=== PATIENT | male | born 1995 | race Caucasian/White ===

== ENCOUNTER 2017-10-01 21:47 | Inpatient (IN) | payer OTHER ==
[~2017-10-01] VITALS: Ht 180.3 cm; Wt 65.6 kg
[2017-10-01] MEDS ORDERED: IOHEXOL 350 MG/ML 10 ML VIAL (for RAD DIAG) IVCONTRAST ONE ×2 (21:48→22:23)
[2017-10-01 21:50] VITALS: O2SAT 100
[2017-10-01] MEDS ORDERED: ONDANSETRON HCL 4 MG/2 ML VIAL ONE (21:50)
[2017-10-01] MEDS ORDERED: MORPHINE SULFATE 8 MG/ML INJ ONE (21:50)
[2017-10-01 22:05] LABS: AUTOMATED NEUTROPHIL # 14.7 TH/MM3 (1.8-7.7); BASOPHIL # 0.1 TH/MM3 (0-0.2); BASOPHIL % 0.4 % (0.0-2.0); EOSINOPHIL # 0.2 TH/MM3 (0-0.4); EOSINOPHIL % 0.8 % (0.0-4.0); HEMATOCRIT 41.2 % (39.0-51.0); HEMOGLOBIN 14.4 GM/DL (13.0-17.0); LYMPH % 21.1 % (9.0-44.0); LYMPHOCYTE # 4.4 TH/MM3 (1.0-4.8); MEAN CELL VOLUME 86.3 FL (80.0-100.0); MEAN CORPUSCULAR HEMOGLOBIN 30.1 PG (27.0-34.0); MEAN CORPUSCULAR HGB CONC 34.9 % (32.0-36.0); MEAN PLATELET VOLUME 8.2 FL (7.0-11.0); MONOCYTE # 1.4 TH/MM3 (0-0.9); NEUT % 70.7 % (16.0-70.0); PLATELET COUNT 288 TH/MM3 (150-450); RED BLOOD COUNT 4.77 MIL/MM3 (4.50-5.90); RED CELL DISTRIBUTION WIDTH 13.4 % (11.6-17.2); WHITE BLOOD COUNT 20.7 TH/MM3 (4.0-11.0)
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
[2017-10-01] MEDS: SODIUM CHLOR 0.9% 1000 ML INJ 1,000 ML IV SCH (22:26)
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
[2017-10-01] MEDS ORDERED: MORPHINE SULFATE 4 MG/ML INJ IV PUSH PRN (22:30)
[2017-10-01] MEDS ORDERED: SENNOSIDES 8.6 MG TAB PO PRN (22:30)
[2017-10-01] MEDS ORDERED: BISACODYL 10 MG SUPP RECTAL PRN (22:30)
[2017-10-01] MEDS ORDERED: cefTRIAXone INJ 2,000 MG in SODIUM CHLORIDE 0.9% INJ 100 ML IV SCH (22:30)
[2017-10-01] MEDS ORDERED: MISCELLANEOUS NURSING INFORMATION XX SCH (22:30)
[2017-10-01] MEDS ORDERED: CHLORHEXIDINE GLUCONATE 2 % 1 PACK (2 CLOTHS) TOP PRN (22:30)
[2017-10-01] MEDS ORDERED: ONDANSETRON HCL 4 MG/2 ML VIAL IV PUSH PRN (22:30)
[2017-10-01] MEDS ORDERED: LACTULOSE SYRUP 20 GM/30 ML CUP PO PRN (22:30)
[2017-10-01] MEDS: ACETAMINOPHEN 1000 MG/100 ML 100 ML IV SCH (22:30)
[2017-10-01] MEDS ORDERED: MAGNESIUM HYDROXIDE SUSP 30 ML CUP PO PRN (22:30)
[2017-10-01] MEDS ORDERED: MORPHINE SULFATE 2 MG/ML INJ IV PUSH PRN (22:30)
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
[2017-10-01 22:39] LABS: INTERNATIONAL NORMALIZED RATIO 1.1 RATIO; PROTHROMBIN TIME - PATIENT 11.4 SEC (9.8-11.6)
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
[2017-10-01 23:00] VITALS: BP 127/60; PULSE 90; RESP 23; TEMP 98.6; O2SAT 100; O2SAT 96
[2017-10-01] MEDS ORDERED: LACTATED RINGER'S 1000 ML INJ 1,000 ML IV ONE (23:00)
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
[2017-10-01] MEDS ORDERED: MAGNESIUM SULFATE INJ 2 GM in SODIUM CHLORIDE 0.9% INJ 96 ML IV PRN (23:45)
[2017-10-01] MEDS ORDERED: MAGNESIUM SULFATE INJ 4 GM in SODIUM CHLORIDE 0.9% INJ 92 ML IV PRN (23:45)
[2017-10-01] MEDS ORDERED: POTASSIUM CHLOR 40 MEQ PREMIX 100 ML IV PRN ×2 (23:45)
[2017-10-01] MEDS ORDERED: MAGNESIUM OXIDE 400 MG TAB PO PRN (23:45)
[2017-10-01] MEDS ORDERED: POTASSIUM PHOSPHATE MONOBASIC 500 MG TAB PO PRN (23:45)
[2017-10-01] MEDS ORDERED: SODIUM PHOSPHATE INJ 30 MMOL in SODIUM CHLOR 0.9% 250 ML INJ 240 ML IV PRN (23:45)
[2017-10-01] MEDS ORDERED: POTASSIUM CHLOR 20 MEQ PREMIX 100 ML IV PRN ×2 (23:45)
[2017-10-01] MEDS ORDERED: POTASSIUM PHOSPHATE MONOBASIC 500 MG TAB PO/TUBE PRN (23:45)
[2017-10-01] MEDS ORDERED: POTASSIUM PHOSPHATE INJ 30 MMOL in SODIUM CHLOR 0.9% 250 ML INJ 250 ML IV PRN (23:45)
[2017-10-01] MEDS ORDERED: POTASSIUM CHLORIDE 25 MEQ EFFERVESCENT TAB PO PRN (23:45)
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
[2017-10-02] VITALS (19 sets, daily range): BP systolic 120–140; BP diastolic 56–74; PULSE 76–100; RESP 15–22; TEMP 98.6–98.8; O2SAT 99–100
[2017-10-02 03:41] LABS: HEMATOCRIT 38.2 % (39.0-51.0); HEMOGLOBIN 13.9 GM/DL (13.0-17.0)
[2017-10-02] MEDS: CHLORHEXIDINE GLUCONATE 2 % 1 PACK (2 CLOTHS) TOP SCH (04:00)
[2017-10-02] MEDS: ACETAMINOPHEN 1000 MG/100 ML 100 ML IV SCH ×3 (04:12→16:06)
[2017-10-02 04:15] LABS: BASOPHIL % 0.1 % (0.0-2.0); HEMATOCRIT 39.2 % (39.0-51.0); HEMOGLOBIN 13.8 GM/DL (13.0-17.0); LYMPH % 4.9 % (9.0-44.0); LYMPHOCYTE # 0.8 TH/MM3 (1.0-4.8); MEAN CELL VOLUME 86.3 FL (80.0-100.0); MEAN CORPUSCULAR HEMOGLOBIN 30.4 PG (27.0-34.0); MEAN CORPUSCULAR HGB CONC 35.2 % (32.0-36.0); MEAN PLATELET VOLUME 7.9 FL (7.0-11.0); MONO % 10.6 % (0.0-8.0); MONOCYTE # 1.6 TH/MM3 (0-0.9); NEUT % 84.4 % (16.0-70.0); PLATELET COUNT 200 TH/MM3 (150-450); RED BLOOD COUNT 4.55 MIL/MM3 (4.50-5.90); RED CELL DISTRIBUTION WIDTH 13.1 % (11.6-17.2); WHITE BLOOD COUNT 15.4 TH/MM3 (4.0-11.0)
[2017-10-02 04:36] LABS: BICARBONATE 26.5 MEQ/L (21.0-32.0); CALCIUM 8.1 MG/DL (8.5-10.1); CREATININE 1.11 MG/DL (0.60-1.30)
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
[2017-10-02] MEDS ORDERED: ceFAZolin INJ 1,000 MG VIAL ONE (06:35)
[2017-10-02] MEDS ORDERED: GENTAMICIN SULFATE 80 MG/2 ML VIAL ONE ×2 (06:35→08:31)
[2017-10-02] MEDS ORDERED: fentaNYL CITRATE 250 MCG/5 ML AMP ONE (07:10)
[2017-10-02] MEDS ORDERED: ceFAZolin 2 GM PREMIX 50 ML ONE (07:16)
[2017-10-02] MEDS: METHOCARBAMOL 500 MG TAB PO SCH ×2 (08:00→16:05)
[2017-10-02] MEDS: SODIUM CHLOR 0.9% 1000 ML INJ 1,000 ML IV SCH ×2 (08:26→19:47)
[2017-10-02] MEDS: GABAPENTIN 300 MG CAP PO SCH ×3 (09:00→19:17)
[2017-10-02] MEDS: DOCUSATE SODIUM 50 MG/SENNA 8.6 MG TAB PO SCH ×2 (09:00→20:38)
--- NOTE | 2017-10-02 10:13 | RADRPT ---
EXAM DATE/TIME: 10/02/2017 08:41 [facility] COMPARISON: TIBIA/FIBULA RIGHT ( 1 VW), October 01, 2017, 21:49. FEMUR RIGHT (AP & LAT/2VWS), October 02, 2017, 8:41 . INDICATIONS : Open reduction internal fixation of right tibia fracture MEDICAL HISTORY : None. SURGICAL HISTORY : None. ENCOUNTER: Initial ACUITY: 1 day PAIN SCORE: Non-responsive. LOCATION: Right distal tibia FINDINGS: Fluoroscopic imaging of the postoperative right tibia and fibula demonstrates intramedullary konstantin and screw through the distal tibia with improved anatomic alignment. There is improved alignment on both the tibial and fibular fractures. CONCLUSION: Status post ORIF of distal fibula and tibia fractures with intramedullary konstantin and screw through the d istal tibia. Good anatomic alignment.. Deirdre Morales MD on October 02, 2017 at 10:09 Board Certified Radiologist. This report was verified electronically.
--- NOTE | 2017-10-02 10:14 | RADRPT ---
EXAM DATE/TIME: 10/02/2017 08:41 [place] COMPARISON: FEMUR RIGHT (1 VW), October 01, 2017, 21:49. INDICATIONS : Open reduction internal fixation of right femur fracture MEDICAL HISTORY : None. SURGICAL HISTORY : None. ENCOUNTER: Initial ACUITY: 1 day PAIN SCORE: Non-responsive. LOCATION: Right femur FINDINGS: Fluoroscopic imaging of the postoperative right femur demonstrates interval placement of an intramedu llary konstantin through the area of fracture with improved anatomic alignment of the mid femur fracture. CONCLUSION: Status post ORIF of a comminuted displaced femur fracture with good anatomic alignment of the osseous structures. Deirdre Morales MD on October 02, 2017 at 10:11 Board Certified Radiologist. This report was verified electronically.
[2017-10-02] MEDS: LACTATED RINGER'S 1000 ML INJ 1,000 ML IV SCH ×2 (10:17→18:17)
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
[2017-10-02] MEDS ORDERED: DO NOT ADM ANY ANTICOAGULANT DRUGS PRN (10:25)
[2017-10-02] MEDS ORDERED: MORPHINE SULFATE 8 MG/ML INJ IV PUSH PRN (10:30)
[2017-10-02] MEDS ORDERED: MAGNESIUM HYDROXIDE SUSP 30 ML CUP PO PRN (10:30)
[2017-10-02] MEDS ORDERED: POVIDONE IODINE 10% SOLN 118 ML BOTTLE TOPICAL PRN (10:30)
[2017-10-02] MEDS ORDERED: ONDANSETRON HCL 4 MG/2 ML VIAL IVP PRN (10:30)
[2017-10-02] MEDS ORDERED: SENNOSIDES 8.6 MG TAB PO PRN (10:30)
[2017-10-02] MEDS ORDERED: BISACODYL 10 MG SUPP RECTAL PRN (10:30)
[2017-10-02] MEDS ORDERED: ACETAMINOPHEN 325 MG TAB PO PRN (10:30)
[2017-10-02] MEDS ORDERED: Post-op Orders (for Pharmacy) XX ONE (10:30)
[2017-10-02] MEDS ORDERED: LACTULOSE SYRUP 20 GM/30 ML CUP PO PRN (10:30)
[2017-10-02] MEDS ORDERED: SODIUM CHLORIDE 0.9% FLUSH 10 ML FLUSH IV FLUSH PRN (10:30)
[2017-10-02] MEDS ORDERED: *MEPERIDINE 25 MG INJ VIAL PERIprocedural Use ONLY ONE (10:43)
[2017-10-02] MEDS: PANTOPRAZOLE SODIUM 40 MG VIAL IV PUSH SCH (10:55)
[2017-10-02] MEDS ORDERED: LIDOCAINE HCL 1% PF 5 ML SYRINGE OTHER ONE (12:00)
[2017-10-02] MEDS ORDERED: PHENYLEPH/NS 1000 MCG/10 ML SYR IV ONE (12:00)
[2017-10-02] MEDS ORDERED: ePHEDrine/NS 25 MG/5 ML SYRINGE IV ONE (12:00)
[2017-10-02] MEDS ORDERED: LACTATED RINGER'S 1000 ML INJ 3,000 ML IV ONE (12:00)
[2017-10-02] MEDS ORDERED: SODIUM CHLOR 0.9% 250 ML INJ 250 ML IV ONE (12:00)
[2017-10-02] MEDS ORDERED: PHENYLEPHRINE HCL 10 MG/ML VIAL IV ONE (12:00)
[2017-10-02] MEDS ORDERED: ONDANSETRON HCL 4 MG/2 ML VIAL IV PUSH ONE (12:00)
[2017-10-02] MEDS ORDERED: DEXAMETHASONE SOD PHOS 4 MG/ML VIAL IV ONE (12:00)
[2017-10-02] MEDS ORDERED: PROPOFOL 200 MG/20 ML AMP IV ONE (12:00)
[2017-10-02] MEDS ORDERED: SUCCINYLCHOLINE CHLORIDE 200 MG/10 ML VIAL IV ONE (12:00)
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
--- NOTE | 2017-10-02 13:23 | PD.ORT.PN ---
Subjective Post Op Day #: 0 Subjective Remarks POD #0 1. Irrigation and debridement right open tibia fracture with intramedullary konstantin fixation 2. Retrograde intramedullary konstantin fixation right femur Pt in recovery area. Objective Vitals Vital Signs Date Time Temp Pulse Resp B/P (MAP) Pulse Ox O2 Delivery O2 Flow Rate FiO2 10/02/17 11:08 91 16 131/78 (95) 97 Room Air 10/02/17 10:54 88 16 129/77 (94) 97 Room Air 10/02/17 10:40 116 16 126/62 (83) 98 Room Air 10/02/17 10:29 97.8 120 16 133/60 (84) 100 Room Air 10/02/17 06:00 98.6 100 10/02/17 05:00 98.7 91 17 /62 99 10/02/17 04:00 98.8 93 17 133/62 (85) 99 10/02/17 04:00 93 10/02/17 03:00 98.8 92 18 135/63 (87) 99 10/02/17 02:00 98.7 98 19 130/59 (82) 100 10/02/17 02:00 98 10/02/17 01:00 98.8 100 21 131/64 (86) 100 10/02/17 00:18 100 Nasal Cannula 1.50 10/02/17 00:00 98.8 90 22 120/56 (77) 100 10/02/17 00:00 90 10/01/17 23:00 96 Nasal Cannula 3.00 10/01/17 23:00 90 10/01/17 23:00 98.6 90 23 127/60 (82) 100 10/01/17 21:50 100 2.00 I/O 10/01/17 10/01/17 10/01/17 10/02/17 10/02/17 10/02/17 07:00 15:00 23:00 07:00 15:00 23:00 Intake Total 3500 ml Output Total 250 ml 99776 ml Balance -250 ml -6500 ml Intake IV Total 3500 ml Output Urine Total 250 ml 900 ml Estimated Blood Loss 100 ml Other 9000 ml # Bowel Movements 0 Result Diagram: 10/02/17 0403 10/02/17 0403 Other Results Laboratory Tests Test 10/01/17 21:48 Prothromb Time International Ratio 1.1 RATIO Prothrombin Time 11.4 SEC (9.8-11.6) Imaging Last 24 hours Impressions Tibia/Fibula X-Ray 10/02/17 0000 Signed Impressions: Service Date/Time: Monday, October 02, 2017 08:41 - CONCLUSION: Status post ORIF of distal fibula and tibia fractures with intramedullary konstantin and screw through the distal tibia. Good anatomic alignment.. Deirdre Morales MD Femur X-Ray 10/02/17 0000 Signed Impressions: Service Date/Time: Monday, October 02, 2017 08:41 - CONCLUSION: Status post ORIF of a comminuted displaced femur fracture with good anatomic alignment of the osseous structures. Deirdre Morales MD Thoracic Spine CT 10/01/172151 Signed Impressions: Service Date/Time: Sunday, October 01, 2017 22:05 - CONCLUSION: Complex fracturing of T4 and T5 as above. Both vertebral posterior elements are involved and there is also a moderate compression fracture of T5. T4/T5 facets are perched on the right with a gibbus and road roto-kyphotic deformity but no associated subluxation. 11 mm right laminar fracture fragment of T4 is displaced into the spinal canal and causes moderate spinal stenosis. Findings were discussed with the trauma surgeon, Dr. Colon, by phone. Hieu Tavarez MD Pelvis X-Ray 10/01/172151 Signed Impressions: Service Date/Time: Sunday, October 01, 2017 21:49 - CONCLUSION: No evidence of pelvic fracture. Hieu Tavarez MD Maxillofacial CT 10/01/172151 Signed Impressions: Service Date/Time: Sunday, October 01, 2017 21:58 - CONCLUSION: Intact facial bones. iHeu Tavarez MD Lumbar Spine CT 10/01/172151 Signed Impressions: Service Date/Time: Sunday, October 01, 2017 22:05 - CONCLUSION: No fracture. Josue Mcmahon MD Head CT 10/01/172151 Signed Impressions: Service Date/Time: Sunday, October 01, 2017 21:58 - CONCLUSION: No bleed or other acute intracranial abnormality. Hieu Tavarez MD Chest X-Ray 10/01/172151 Signed Impressions: Service Date/Time: Sunday, October 01, 2017 21:49 - CONCLUSION: Trauma chest x-ray within normal limits. CT to follow. Hieu Tavarez MD Chest CT 10/01/172151 Signed Impressions: Service Date/Time: Sunday, October 01, 2017 22:05 - CONCLUSION: T4 and T5 thoracic spine fracture. Thoracic spine CT to follow and please refer to that report. The rest of the chest CT is within normal limits. Hieu Tavarez MD Cervical Spine CT 10/01/172151 Signed Impressions: Service Date/Time: Sunday, October 01, 2017 21:58 - CONCLUSION: Multifocal cervical spine fractures including the C1 ring and posterior elements of C6 and C7. Please see above. No subluxations. Mass of the left lobe of the thyroid gland and a nonemergent thyroid ultrasound is recommended. 1. Hieu Tavarez MD Abdomen/Pelvis CT 10/01/172151 Signed Impressions: Service Date/Time: Sunday, October 01, 2017 22:05 - CONCLUSION: No acute abnormality of the abdomen or pelvis. Hieu Tavarez MD Procedures 1. Irrigation and debridement right open tibia fracture with intramedullary konstantin fixation, 10/02/17, Dr Benjamin 2. Retrograde intramedullary konstantin fixation right femur, 10/02/17, Dr Benjamin Objective Remarks RLE: Dressing dry and intact. Brace in place. Tender to palpation with mild swelling around incision site. Range of motion not tested. Freely able to move distal digits. No calf pain. Negative Cristina's sign. Good cap refill. 2+ pedal pulses. Neurovascular intact. Assessment & Plan Ortho Post Op Day #: 0 Problem List: (1) Displaced comminuted fracture of shaft of right femur ICD Codes: S72.351A - Displaced comminuted fracture of shaft of right femur, initial encounter for closed fracture (2) Type I or II open fracture of right tibia and fibula ICD Codes: S82.201B - Unspecified fracture of shaft of right tibia, initial encounter for open fracture type I or II; S82.401B - Unspecified fracture of shaft of right fibula, initial encounter for open fracture type I or II Assessment and Plan POD #0 1. Irrigation and debridement right open tibia fracture with intramedullary konstantin fixation 2. Retrograde intramedullary konstantin fixation right femur Progress rehab, toe touch w/b for transfers only RLE CKS for comfort while in bed. DVT prophylaxis per trauma team Start daily dressing changes on POD #2 Discharge planning from an orthopedic standpoint Jayde Ziegler Oct 02, 2017 1:23 pm
[2017-10-02] MEDS: oxyCODONE/ACETAMINOPHEN 5 MG/325 MG TAB PO PRN ×2 (14:39→20:38)
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
[2017-10-02] MEDS: ceFAZolin 2 GM PREMIX 50 ML IV SCH (19:16)
[2017-10-02] MEDS: SODIUM CHLORIDE 0.9% FLUSH 10 ML FLUSH IV FLUSH SCH (21:00)
[2017-10-02] MEDS ORDERED: DOCUSATE SODIUM 50 MG/SENNA 8.6 MG TAB PO SCH (21:00)
[2017-10-03] VITALS (16 sets, daily range): BP systolic 121–138; BP diastolic 57–168; PULSE 88–105; RESP 16–21; TEMP 98.4–100.9; O2SAT 97–99
[2017-10-03] MEDS: ceFAZolin 2 GM PREMIX 50 ML IV SCH (00:54)
[2017-10-03] MEDS: oxyCODONE/ACETAMINOPHEN 5 MG/325 MG TAB PO PRN ×6 (00:55→22:37)
[2017-10-03] MEDS: METHOCARBAMOL 500 MG TAB PO SCH ×4 (00:55→22:33)
[2017-10-03] MEDS: LACTATED RINGER'S 1000 ML INJ 1,000 ML IV SCH ×4 (02:17→18:45)
[2017-10-03] MEDS: CHLORHEXIDINE GLUCONATE 2 % 1 PACK (2 CLOTHS) TOP SCH (04:00)
[2017-10-03 05:23] LABS: HEMATOCRIT 30.6 % (39.0-51.0)
[2017-10-03] MEDS: PANTOPRAZOLE SODIUM 40 MG VIAL IV PUSH SCH (05:46)
[2017-10-03] MEDS: DOCUSATE SODIUM 50 MG/SENNA 8.6 MG TAB PO SCH ×2 (08:06→22:21)
[2017-10-03] MEDS: GABAPENTIN 300 MG CAP PO SCH ×3 (08:06→18:45)
[2017-10-03] MEDS: SODIUM CHLORIDE 0.9% FLUSH 10 ML FLUSH IV FLUSH SCH ×2 (08:07→22:21)
--- NOTE | 2017-10-03 10:59 | PD.ORT.PN ---
Subjective Subjective Remarks Patient in ISC. Patient appears very comfortable. Wearing cervical collar. No new complaints Objective Vitals Vital Signs Date Time Temp Pulse Resp B/P (MAP) Pulse Ox O2 Delivery O2 Flow Rate FiO2 10/03/17 08:00 98.4 95 21 121/57 (78) 97 10/03/17 08:00 95 10/03/17 07:30 90 10/03/17 07:30 100 Room Air 10/03/17 06:00 98 10/03/17 04:00 89 10/03/17 03:00 98.9 90 16 125/60 (81) 98 10/03/17 02:00 88 10/03/17 00:00 94 10/02/17 23:37 99 Nasal Cannula 1.50 10/02/17 23:00 98.8 88 16 124/66 (85) 100 10/02/17 22:00 99 10/02/17 20:00 82 10/02/17 19:00 99 Room Air 1.50 10/02/17 19:00 98.6 96 17 139/74 (95) 10/02/17 18:00 90 10/02/17 16:00 95 10/02/17 16:00 98.8 89 15 140/67 (91) 99 10/02/17 15:37 84 10/02/17 14:00 83 10/02/17 12:00 76 10/02/17 12:00 98 10/02/17 11:45 98.7 76 20 139/73 (95) 100 10/02/17 11:45 100 Room Air 10/02/17 11:08 91 16 131/78 (95) 97 Room Air I/O 10/02/17 10/02/17 10/02/17 10/03/17 10/03/17 10/03/17 07:00 15:00 23:00 07:00 15:00 23:00 Intake Total 3500 ml 557 ml Output Total 250 ml 29370 ml 975 ml 1850 ml Balance -250 ml -6500 ml -418 ml -1850 ml Intake Oral 120 ml IV Total 3500 ml 437 ml Output Urine Total 250 ml 900 ml 975 ml 1850 ml Estimated Blood Loss 100 ml Other 9000 ml # Bowel Movements 0 0 Result Diagram: 10/03/17 0455 10/02/17 0403 Imaging Last 24 hours Impressions Tibia/Fibula X-Ray 10/02/17 0000 Signed Impressions: Service Date/Time: Monday, October 02, 2017 08:41 - CONCLUSION: Status post ORIF of distal fibula and tibia fractures with intramedullary konstantin and screw through the distal tibia. Good anatomic alignment.. Deirdre Morales MD Femur X-Ray 10/02/17 0000 Signed Impressions: Service Date/Time: Monday, October 02, 2017 08:41 - CONCLUSION: Status post ORIF of a comminuted displaced femur fracture with good anatomic alignment of the osseous structures. Deirdre Morales MD Thoracic Spine CT 10/01/172151 Signed Impressions: Service Date/Time: Sunday, October 01, 2017 22:05 - CONCLUSION: Complex fracturing of T4 and T5 as above. Both vertebral posterior elements are involved and there is also a moderate compression fracture of T5. T4/T5 facets are perched on the right with a gibbus and road roto-kyphotic deformity but no associated subluxation. 11 mm right laminar fracture fragment of T4 is displaced into the spinal canal and causes moderate spinal stenosis. Findings were discussed with the trauma surgeon, Dr. Colon, by phone. Hieu Tavarez MD Pelvis X-Ray 10/01/172151 Signed Impressions: Service Date/Time: Sunday, October 01, 2017 21:49 - CONCLUSION: No evidence of pelvic fracture. Hieu Tavarze MD Maxillofacial CT 10/01/172151 Signed Impressions: Service Date/Time: Sunday, October 01, 2017 21:58 - CONCLUSION: Intact facial bones. Hieu Tavarez MD Lumbar Spine CT 10/01/172151 Signed Impressions: Service Date/Time: Sunday, October 01, 2017 22:05 - CONCLUSION: No fracture. Josue Mcmahon MD Head CT 10/01/172151 Signed Impressions: Service Date/Time: Sunday, October 01, 2017 21:58 - CONCLUSION: No bleed or other acute intracranial abnormality. Hieu Tavarez MD Chest X-Ray 10/01/172151 Signed Impressions: Service Date/Time: Sunday, October 01, 2017 21:49 - CONCLUSION: Trauma chest x-ray within normal limits. CT to follow. Hieu Tavarez MD Chest CT 10/01/172151 Signed Impressions: Service Date/Time: Sunday, October 01, 2017 22:05 - CONCLUSION: T4 and T5 thoracic spine fracture. Thoracic spine CT to follow and please refer to that report. The rest of the chest CT is within normal limits. Hieu Tavarez MD Cervical Spine CT 10/01/172151 Signed Impressions: Service Date/Time: Sunday, October 01, 2017 21:58 - CONCLUSION: Multifocal cervical spine fractures including the C1 ring and posterior elements of C6 and C7. Please see above. No subluxations. Mass of the left lobe of the thyroid gland and a nonemergent thyroid ultrasound is recommended. 1. Hieu Tavarez MD Abdomen/Pelvis CT 10/01/172151 Signed Impressions: Service Date/Time: Sunday, October 01, 2017 22:05 - CONCLUSION: No acute abnormality of the abdomen or pelvis. Hieu Tavarez MD Procedures 1. Irrigation and debridement right open tibia fracture with intramedullary konstantin fixation, 10/02/17, Dr Benjamin 2. Retrograde intramedullary konstantin fixation right femur, 10/02/17, Dr Benjamin Objective Remarks RLE: Dressing dry and intact. Brace in place. Tender to palpation with mild swelling around incision site. Range of motion not tested. Freely able to move distal digits. No calf pain. Negative Cristina's sign. Good cap refill. 2+ pedal pulses. Neurovascular intact. Moderate swelling of the right foot but no discomfort to deep palpation. No tenderness of either shoulder or elbow or wrist. No tenderness of left hip knee or ankle Assessment & Plan Problem List: (1) Displaced comminuted fracture of shaft of right femur ICD Codes: S72.351A - Displaced comminuted fracture of shaft of right femur, initial encounter for closed fracture (2) Type I or II open fracture of right tibia and fibula ICD Codes: S82.201B - Unspecified fracture of shaft of right tibia, initial encounter for open fracture type I or II; S82.401B - Unspecified fracture of shaft of right fibula, initial encounter for open fracture type I or II Assessment and Plan POD #1 1. Irrigation and debridement right open tibia fracture with intramedullary konstantin fixation 2. Retrograde intramedullary konstantin fixation right femur Progress rehab, toe touch w/b for transfers only RLE CKS for comfort while in bed. DVT prophylaxis per trauma team Start daily dressing changes on POD #2 Discharge planning from an orthopedic standpoint Spinal skeletal conditions treated by neurosurgery Stable orthopedically Eliud Meraz MD Oct 03, 2017 10:59
[2017-10-03] MEDS: BACITRACIN TOP OINT 15 GM TUBE TOPICAL SCH ×2 (12:25→22:21)
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
[2017-10-03] MEDS: SODIUM CHLOR 0.9% 1000 ML INJ 1,000 ML IV SCH (16:05)
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
[2017-10-03] MEDS ORDERED: ceFAZolin 2 GM PREMIX 50 ML IV ONE (16:15)
[2017-10-03] MEDS ORDERED: VANCOMYCIN INJ 1,000 MG in SODIUM CHLOR 0.9% 250 ML INJ 250 ML IV ONE (16:15)
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
[2017-10-03] MEDS: CHLORHEXIDINE GLUCONATE 4% SOLN 120 ML BTL TOP SCH (22:21)
[2017-10-04] VITALS (8 sets, daily range): BP systolic 126–138; BP diastolic 59–73; PULSE 82–104; RESP 12–24; TEMP 98.3–101.5; O2SAT 91–100
[2017-10-04] MEDS: SODIUM CHLOR 0.9% 1000 ML INJ 1,000 ML IV SCH ×3 (02:05→21:24)
[2017-10-04] MEDS: LACTATED RINGER'S 1000 ML INJ 1,000 ML IV SCH ×4 (02:34→21:24)
[2017-10-04] MEDS: CHLORHEXIDINE GLUCONATE 2 % 1 PACK (2 CLOTHS) TOP SCH ×2 (02:34→21:24)
[2017-10-04] MEDS: oxyCODONE/ACETAMINOPHEN 5 MG/325 MG TAB PO PRN (02:40)
[2017-10-04 04:36] LABS: AUTOMATED NEUTROPHIL # 5.4 TH/MM3 (1.8-7.7); BASOPHIL % 0.4 % (0.0-2.0); EOSINOPHIL # 0.2 TH/MM3 (0-0.4); EOSINOPHIL % 2.2 % (0.0-4.0); HEMATOCRIT 28.1 % (39.0-51.0); LYMPH % 14.4 % (9.0-44.0); LYMPHOCYTE # 1.1 TH/MM3 (1.0-4.8); MEAN CELL VOLUME 86.3 FL (80.0-100.0); MEAN CORPUSCULAR HEMOGLOBIN 30.7 PG (27.0-34.0); MEAN CORPUSCULAR HGB CONC 35.6 % (32.0-36.0); MEAN PLATELET VOLUME 7.8 FL (7.0-11.0); MONO % 12.7 % (0.0-8.0); NEUT % 70.3 % (16.0-70.0); PLATELET COUNT 155 TH/MM3 (150-450); RED BLOOD COUNT 3.26 MIL/MM3 (4.50-5.90); RED CELL DISTRIBUTION WIDTH 13.2 % (11.6-17.2); WHITE BLOOD COUNT 7.7 TH/MM3 (4.0-11.0)
[2017-10-04 04:59] LABS: BICARBONATE 28.3 MEQ/L (21.0-32.0); CALCIUM 7.9 MG/DL (8.5-10.1); CREATININE 0.92 MG/DL (0.60-1.30)
[2017-10-04] MEDS ORDERED: SUFentanil INJ 250 MCG/5 ML AMP ONE (06:51)
[2017-10-04] MEDS ORDERED: ARTIFICIAL TEARS OPTH OINT 3.5 APPLIC/3.5 GM TUBO ONE (06:55)
[2017-10-04] MEDS ORDERED: PROPOFOL 500 MG/50 ML INJ 150 ML ONE (06:55)
[2017-10-04] MEDS ORDERED: ACETAMINOPHEN 1000 MG/100 ML 100 ML IV ONE (06:55)
--- NOTE | 2017-10-04 07:15 | PD.ORT.PN ---
Subjective Post Op Day #: 2 Subjective Remarks The patient is awake and alert and answers questions appropriate. His right lower extremity pain is well-controlled. He is scheduled to undergo surgical management of his thoracic spine today. Objective Vitals Vital Signs Date Time Temp Pulse Resp B/P (MAP) Pulse Ox O2 Delivery O2 Flow Rate FiO2 10/04/17 06:00 82 10/04/17 04:00 96 10/04/17 04:00 98.3 96 12 133/59 (83) 91 10/04/17 02:00 94 10/04/17 00:00 90 10/04/17 00:00 101.5 96 24 132/65 (87) 95 10/03/17 23:00 96 10/03/17 22:00 96 10/03/17 20:00 98 10/03/17 20:00 99.4 98 20 132/60 (84) 99 10/03/17 19:00 100 Room Air 10/03/17 18:00 105 10/03/17 16:00 101 10/03/17 16:00 98.6 101 19 138/168 (158) 98 10/03/17 15:00 103 10/03/17 14:38 96 10/03/17 12:00 92 10/03/17 12:00 100.9 92 19 132/68 (89) 99 10/03/17 10:00 90 10/03/17 08:00 98.4 95 21 121/57 (78) 97 10/03/17 08:00 95 10/03/17 07:30 90 10/03/17 07:30 100 Room Air I/O 10/03/17 10/03/17 10/03/17 10/04/17 10/04/17 10/04/17 07:00 15:00 23:00 07:00 15:00 23:00 Intake Total 2250 ml Output Total 1850 ml 1700 ml 1675 ml Balance -1850 ml 550 ml -1675 ml Intake Oral 850 ml IV Total 1400 ml Output Urine Total 1850 ml 1700 ml 1675 ml # Bowel Movements 0 0 Result Diagram: 10/04/17 0410 10/04/17 0410 Imaging Last 24 hours Impressions Tibia/Fibula X-Ray 10/02/17 0000 Signed Impressions: Service Date/Time: Monday, October 02, 2017 08:41 - CONCLUSION: Status post ORIF of distal fibula and tibia fractures with intramedullary konstantin and screw through the distal tibia. Good anatomic alignment.. Deirdre Morales MD Femur X-Ray 10/02/17 0000 Signed Impressions: Service Date/Time: Monday, October 02, 2017 08:41 - CONCLUSION: Status post ORIF of a comminuted displaced femur fracture with good anatomic alignment of the osseous structures. Deirdre Morales MD Thoracic Spine CT 10/01/172151 Signed Impressions: Service Date/Time: Sunday, October 01, 2017 22:05 - CONCLUSION: Complex fracturing of T4 and T5 as above. Both vertebral posterior elements are involved and there is also a moderate compression fracture of T5. T4/T5 facets are perched on the right with a gibbus and road roto-kyphotic deformity but no associated subluxation. 11 mm right laminar fracture fragment of T4 is displaced into the spinal canal and causes moderate spinal stenosis. Findings were discussed with the trauma surgeon, Dr. Colon, by phone. Hieu Tavarez MD Pelvis X-Ray 10/01/172151 Signed Impressions: Service Date/Time: Sunday, October 01, 2017 21:49 - CONCLUSION: No evidence of pelvic fracture. Hieu Tavarez MD Maxillofacial CT 10/01/172151 Signed Impressions: Service Date/Time: Sunday, October 01, 2017 21:58 - CONCLUSION: Intact facial bones. Hieu Tavarez MD Lumbar Spine CT 10/01/172151 Signed Impressions: Service Date/Time: Sunday, October 01, 2017 22:05 - CONCLUSION: No fracture. Josue Mcmahon MD Head CT 10/01/172151 Signed Impressions: Service Date/Time: Sunday, October 01, 2017 21:58 - CONCLUSION: No bleed or other acute intracranial abnormality. Hieu Tavarez MD Chest X-Ray 10/01/172151 Signed Impressions: Service Date/Time: Sunday, October 01, 2017 21:49 - CONCLUSION: Trauma chest x-ray within normal limits. CT to follow. Hieu Tavarez MD Chest CT 10/01/172151 Signed Impressions: Service Date/Time: Sunday, October 01, 2017 22:05 - CONCLUSION: T4 and T5 thoracic spine fracture. Thoracic spine CT to follow and please refer to that report. The rest of the chest CT is within normal limits. Hieu Tavarez MD Cervical Spine CT 10/01/172151 Signed Impressions: Service Date/Time: Sunday, October 01, 2017 21:58 - CONCLUSION: Multifocal cervical spine fractures including the C1 ring and posterior elements of C6 and C7. Please see above. No subluxations. Mass of the left lobe of the thyroid gland and a nonemergent thyroid ultrasound is recommended. 1. Hieu Tavarez MD Abdomen/Pelvis CT 10/01/172151 Signed Impressions: Service Date/Time: Sunday, October 01, 2017 22:05 - CONCLUSION: No acute abnormality of the abdomen or pelvis. Hieu Tavarez MD Procedures 1. Irrigation and debridement right open tibia fracture with intramedullary konstantin fixation, 10/02/17, Dr Benjamin 2. Retrograde intramedullary konstantin fixation right femur, 10/02/17, Dr Benjamin Objective Remarks RLE: Dressing dry and intact. Brace in place. Tender to palpation with mild swelling around incision site. Range of motion not tested. Freely able to move distal digits. Mild weakness of ankle dorsiflexion. No calf pain. Negative Cristina's sign. Good cap refill. 2+ pedal pulses. Moderate swelling of the right foot but no discomfort to deep palpation. No tenderness of either shoulder or elbow or wrist. No tenderness of left hip knee or ankle Assessment & Plan Ortho Post Op Day #: 2 Problem List: (1) Displaced comminuted fracture of shaft of right femur ICD Codes: S72.351A - Displaced comminuted fracture of shaft of right femur, initial encounter for closed fracture Status: Acute Qualifiers: (2) Type I or II open fracture of right tibia and fibula ICD Codes: S82.201B - Unspecified fracture of shaft of right tibia, initial encounter for open fracture type I or II; S82.401B - Unspecified fracture of shaft of right fibula, initial encounter for open fracture type I or II Status: Acute Qualifiers: Qualified Codes: S82.201B - Unspecified fracture of shaft of right tibia, initial encounter for open fracture type I or II; S82.401B - Unspecified fracture of shaft of right fibula, initial encounter for open fracture type I or II Assessment and Plan POD #2 1. Irrigation and debridement right open tibia fracture with intramedullary konstantin fixation 2. Retrograde intramedullary konstantin fixation right femur Progress rehab, toe touch w/b for transfers only RLE CKS for comfort while in bed. DVT prophylaxis per trauma team Start daily dressing changes on POD #2 Discharge planning from an orthopedic standpoint Spinal skeletal conditions treated by neurosurgery-surgical management of thoracic spine today Stable orthopedically Kerwin Benjamin MD Oct 04, 2017 07:15
[2017-10-04] MEDS: PANTOPRAZOLE SODIUM 40 MG VIAL IV PUSH SCH (07:17)
[2017-10-04] MEDS ORDERED: GELFOAM SIZE 100 ONE (07:31)
[2017-10-04] MEDS ORDERED: VANCOMYCIN HCL 1000 MG VIAL ONE (07:32)
[2017-10-04] MEDS ORDERED: THROMBIN (TOPICAL) 5,000 UNIT VIAL ONE ×2 (07:32→13:13)
[2017-10-04] MEDS ORDERED: ceFAZolin 2 GM PREMIX 50 ML ONE ×2 (07:32→15:06)
[2017-10-04] MEDS ORDERED: methylPREDNISolone ACETATE 40 MG/ML VIAL ONE (07:33)
[2017-10-04] MEDS ORDERED: GENTAMICIN SULFATE 80 MG/2 ML VIAL ONE (07:33)
[2017-10-04] MEDS: METHOCARBAMOL 500 MG TAB PO SCH ×2 (08:00→23:14)
[2017-10-04] MEDS: DOCUSATE SODIUM 50 MG/SENNA 8.6 MG TAB PO SCH ×2 (09:00→21:26)
[2017-10-04] MEDS: BACITRACIN TOP OINT 15 GM TUBE TOPICAL SCH ×2 (09:00→21:26)
[2017-10-04] MEDS: SODIUM CHLORIDE 0.9% FLUSH 10 ML FLUSH IV FLUSH SCH ×2 (09:00→21:26)
[2017-10-04] MEDS: GABAPENTIN 300 MG CAP PO SCH ×2 (09:00→21:25)
[2017-10-04] MEDS ORDERED: KETAMINE HCL 10 MG/5 ML SYRINGE IV PUSH ONE (09:02)
[2017-10-04] MEDS ORDERED: HEPARIN SODIUM - SQ 10,000 UNITS/ML VIAL ONE (10:13)
[2017-10-04] MEDS ORDERED: HEPARIN SODIUM - IV 10,000 UNITS/10 ML VIAL ONE (10:13)
[2017-10-04] MEDS ORDERED: PHENYLEPH/NS 1000 MCG/10 ML SYR IV ONE (12:00)
[2017-10-04] MEDS ORDERED: PROPOFOL 200 MG/20 ML AMP IV ONE (12:00)
[2017-10-04] MEDS ORDERED: LIDOCAINE HCL 1% PF 5 ML SYRINGE OTHER ONE (12:00)
[2017-10-04] MEDS ORDERED: SODIUM CHLORID 0.9% 500 ML INJ 500 ML IV ONE (12:00)
[2017-10-04] MEDS ORDERED: NORMOSOL R INJ 1,000 ML IV ONE (12:00)
[2017-10-04] MEDS ORDERED: SODIUM CHLOR 0.9% 250 ML INJ 500 ML IV ONE (12:00)
[2017-10-04] MEDS ORDERED: ONDANSETRON HCL 4 MG/2 ML VIAL IV ONE (12:00)
[2017-10-04] MEDS ORDERED: PHENYLEPHRINE HCL 10 MG/ML VIAL IV ONE (12:00)
[2017-10-04] MEDS ORDERED: ePHEDrine/NS 25 MG/5 ML SYRINGE IV ONE (12:00)
[2017-10-04] MEDS ORDERED: DEXAMETHASONE SOD PHOS 4 MG/ML VIAL IV ONE (12:00)
[2017-10-04] MEDS ORDERED: GLYCOPYRROLATE 1 MG/5 ML SYRINGE IV PUSH ONE (12:00)
[2017-10-04] MEDS ORDERED: LACTATED RINGER'S 1000 ML INJ 2,000 ML IV ONE (12:00)
[2017-10-04] MEDS ORDERED: LIDOCAINE 1%/EPINEPHrine 1:100,000 SOLN 30 ML VIAL ONE (12:17)
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
[2017-10-04] MEDS ORDERED: GELATIN POWDER 1 GM PACKET ONE (13:14)
[2017-10-04 15:04] LABS: HEMOGLOBIN 8.5 GM/DL (13.0-17.0)
[2017-10-04 16:14] LABS: HEMATOCRIT 27.7 % (39.0-51.0); HEMOGLOBIN 9.7 GM/DL (13.0-17.0)
[2017-10-04] MEDS ORDERED: MORPHINE SULFATE 4 MG/ML INJ IV PUSH PRN (16:15)
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
--- NOTE | 2017-10-04 16:43 | RADRPT ---
EXAM DATE/TIME: 10/04/2017 11:19 [facility] COMPARISON: MRI THORACIC SPINE W/O CONTRAST, October 02, 2017, 16:48. INDICATIONS : Post hardware placement thoracic spine MEDICAL HISTORY : Right tibia fracture SURGICAL HISTORY : Hardware placement right tibia ENCOUNTER: Initial ACUITY: 3 days PAIN SCORE: Non-responsive. LOCATION: Thoracic spine FINDINGS: Transpedicular fixation is seen bridging the fractures of T4 and T5. Alignment is anatomic in the la teral projection. . CONCLUSION: Status post transpedicular fixation as above. Willie Parmar MD FACR on October 04, 2017 at 16:39 Board Certified Radiologist. This report was verified electronically.
[2017-10-04] MEDS ORDERED: DO NOT ADM ANY ANTICOAGULANT DRUGS PRN (16:51)
[2017-10-04] MEDS ORDERED: MIDAZOLAM HCL 2 MG/2 ML VIAL ONE (17:06)
[2017-10-04] MEDS: NS + KCL 20 MEQ INJ 1,000 ML IV SCH (17:25)
[2017-10-04] MEDS: HYDROmorphone HCL PCA 6 MG/30 ML IV SCH ×2 (17:25→23:15)
[2017-10-04] MEDS ORDERED: MORPHINE SULFATE 2 MG/ML INJ IV PUSH PRN (17:30)
[2017-10-04 17:58] LABS: HEMATOCRIT 31.5 % (39.0-51.0); MEAN CELL VOLUME 86.1 FL (80.0-100.0); MEAN CORPUSCULAR HEMOGLOBIN 30.1 PG (27.0-34.0); MEAN CORPUSCULAR HGB CONC 34.9 % (32.0-36.0); MEAN PLATELET VOLUME 7.7 FL (7.0-11.0); PLATELET COUNT 135 TH/MM3 (150-450); RED BLOOD COUNT 3.66 MIL/MM3 (4.50-5.90); RED CELL DISTRIBUTION WIDTH 13.5 % (11.6-17.2)
[2017-10-04 18:16] LABS: BICARBONATE 27.4 MEQ/L (21.0-32.0); CALCIUM 7.5 MG/DL (8.5-10.1); CREATININE 0.9 MG/DL (0.60-1.30)
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
[2017-10-04] MEDS: CHLORHEXIDINE GLUCONATE 4% SOLN 120 ML BTL TOP SCH (21:00)
[2017-10-04] MEDS: ceFAZolin 2 GM PREMIX 50 ML IV SCH (21:26)
[2017-10-05] VITALS (12 sets, daily range): BP systolic 111–130; BP diastolic 56–66; PULSE 80–105; RESP 10–19; TEMP 98.2–100.1; O2SAT 93–100
[2017-10-05] MEDS: NS + KCL 20 MEQ INJ 1,000 ML IV SCH ×3 (02:33→23:23)
[2017-10-05 05:33] LABS: AUTOMATED NEUTROPHIL # 5.7 TH/MM3 (1.8-7.7); BASOPHIL % 0.1 % (0.0-2.0); EOSINOPHIL % 0.5 % (0.0-4.0); HEMATOCRIT 26.7 % (39.0-51.0); HEMOGLOBIN 9.5 GM/DL (13.0-17.0); LYMPH % 13.5 % (9.0-44.0); LYMPHOCYTE # 1.1 TH/MM3 (1.0-4.8); MEAN CELL VOLUME 85.5 FL (80.0-100.0); MEAN CORPUSCULAR HEMOGLOBIN 30.5 PG (27.0-34.0); MEAN CORPUSCULAR HGB CONC 35.7 % (32.0-36.0); MEAN PLATELET VOLUME 7.5 FL (7.0-11.0); MONO % 13.5 % (0.0-8.0); MONOCYTE # 1.1 TH/MM3 (0-0.9); NEUT % 72.4 % (16.0-70.0); PLATELET COUNT 143 TH/MM3 (150-450); RED BLOOD COUNT 3.13 MIL/MM3 (4.50-5.90); RED CELL DISTRIBUTION WIDTH 13.9 % (11.6-17.2); WHITE BLOOD COUNT 7.9 TH/MM3 (4.0-11.0)
[2017-10-05] MEDS: ceFAZolin 2 GM PREMIX 50 ML IV SCH ×2 (05:40→14:52)
[2017-10-05] MEDS: PCA - TOTAL MG DILAUDID DELIVERED PER SHIFT SCH ×3 (05:40→22:55)
[2017-10-05 05:44] LABS: BICARBONATE 27.4 MEQ/L (21.0-32.0); CALCIUM 7.5 MG/DL (8.5-10.1); CREATININE 0.77 MG/DL (0.60-1.30)
[2017-10-05] MEDS: METHOCARBAMOL 500 MG TAB PO SCH ×3 (07:56→23:23)
[2017-10-05] MEDS: SODIUM CHLOR 0.9% 1000 ML INJ 1,000 ML IV SCH (07:58)
[2017-10-05] MEDS: PANTOPRAZOLE SODIUM 40 MG VIAL IVP SCH (08:06)
[2017-10-05] MEDS: DOCUSATE SODIUM 50 MG/SENNA 8.6 MG TAB PO SCH ×2 (08:06→20:30)
[2017-10-05] MEDS: GABAPENTIN 300 MG CAP PO SCH ×3 (08:06→18:28)
[2017-10-05] MEDS: SODIUM CHLORIDE 0.9% FLUSH 10 ML FLUSH IV FLUSH SCH ×2 (08:07→20:30)
[2017-10-05] MEDS: BACITRACIN TOP OINT 15 GM TUBE TOPICAL SCH ×2 (08:07→20:30)
--- NOTE | 2017-10-05 08:07 | PD.ORT.PN ---
Subjective Subjective Remarks POD #3 1. Irrigation and debridement right open tibia fracture with intramedullary konstantin fixation 2. Retrograde intramedullary konstantin fixation right femur Pt is awake and alert. Admits his pain is well controlled. He seems to be recovering well after a large back operation yesterday. Objective Vitals Vital Signs Date Time Temp Pulse Resp B/P (MAP) Pulse Ox O2 Delivery O2 Flow Rate FiO2 10/05/17 06:00 87 10/05/17 05:40 15 10/05/17 04:00 80 10/05/17 04:00 99.0 80 12 111/56 (74) 96 10/05/17 02:00 93 10/05/17 00:00 92 10/05/17 00:00 98.2 92 15 126/66 (86) 93 10/04/17 23:15 14 10/04/17 22:00 90 10/04/17 20:00 104 10/04/17 20:00 98.5 104 16 138/73 (94) 100 10/04/17 19:00 100 Nasal Cannula 2.00 10/04/17 18:00 98.4 90 12 126/71 (89) 100 10/04/17 18:00 96 10/04/17 17:45 97.5 84 15 126/72 (90) 100 Nasal Cannula 2 10/04/17 17:30 75 17 131/65 (87) 100 Nasal Cannula 2 10/04/17 17:25 19 10/04/17 17:15 86 19 133/68 (89) 100 Nasal Cannula 2 10/04/17 17:00 100 18 133/63 (86) 100 Nasal Cannula 2 10/04/17 16:51 97.3 113 20 132/61 (84) 100 Nasal Cannula 2 10/04/17 08:45 79 20 136/72 (93) 98 I/O 10/04/17 10/04/17 10/04/17 10/05/17 10/05/17 10/05/17 07:00 15:00 23:00 07:00 15:00 23:00 Intake Total 4775 ml 240 ml Output Total 1675 ml 1530 ml 1685 ml Balance -1675 ml 3245 ml -1445 ml Intake Oral 25 ml 240 ml IV Total 3950 ml Packed Cells 800 ml Output Urine Total 1675 ml 1100 ml 1675 ml Drainage Total 30 ml 10 ml Estimated Blood Loss 400 ml # Bowel Movements 0 0 Result Diagram: 10/05/17 0505 10/05/17 0505 Imaging Last 24 hours Impressions Tibia/Fibula X-Ray 10/02/17 0000 Signed Impressions: Service Date/Time: Monday, October 02, 2017 08:41 - CONCLUSION: Status post ORIF of distal fibula and tibia fractures with intramedullary konstantin and screw through the distal tibia. Good anatomic alignment.. Deirdre Morales MD Femur X-Ray 10/02/17 0000 Signed Impressions: Service Date/Time: Monday, October 02, 2017 08:41 - CONCLUSION: Status post ORIF of a comminuted displaced femur fracture with good anatomic alignment of the osseous structures. Deirdre Morales MD Thoracic Spine CT 10/01/172151 Signed Impressions: Service Date/Time: Sunday, October 01, 2017 22:05 - CONCLUSION: Complex fracturing of T4 and T5 as above. Both vertebral posterior elements are involved and there is also a moderate compression fracture of T5. T4/T5 facets are perched on the right with a gibbus and road roto-kyphotic deformity but no associated subluxation. 11 mm right laminar fracture fragment of T4 is displaced into the spinal canal and causes moderate spinal stenosis. Findings were discussed with the trauma surgeon, Dr. Colon, by phone. Hieu Tavarez MD Pelvis X-Ray 10/01/172151 Signed Impressions: Service Date/Time: Sunday, October 01, 2017 21:49 - CONCLUSION: No evidence of pelvic fracture. Hieu Tavarez MD Maxillofacial CT 10/01/172151 Signed Impressions: Service Date/Time: Sunday, October 01, 2017 21:58 - CONCLUSION: Intact facial bones. Hieu Tavarez MD Lumbar Spine CT 10/01/172151 Signed Impressions: Service Date/Time: Sunday, October 01, 2017 22:05 - CONCLUSION: No fracture. Josue Mcmahon MD Head CT 10/01/172151 Signed Impressions: Service Date/Time: Sunday, October 01, 2017 21:58 - CONCLUSION: No bleed or other acute intracranial abnormality. Hieu Tavarez MD Chest X-Ray 10/01/172151 Signed Impressions: Service Date/Time: Sunday, October 01, 2017 21:49 - CONCLUSION: Trauma chest x-ray within normal limits. CT to follow. Hieu Tavarez MD Chest CT 10/01/172151 Signed Impressions: Service Date/Time: Sunday, October 01, 2017 22:05 - CONCLUSION: T4 and T5 thoracic spine fracture. Thoracic spine CT to follow and please refer to that report. The rest of the chest CT is within normal limits. Hieu Tavarez MD Cervical Spine CT 10/01/172151 Signed Impressions: Service Date/Time: Sunday, October 01, 2017 21:58 - CONCLUSION: Multifocal cervical spine fractures including the C1 ring and posterior elements of C6 and C7. Please see above. No subluxations. Mass of the left lobe of the thyroid gland and a nonemergent thyroid ultrasound is recommended. 1. Hieu Tavarez MD Abdomen/Pelvis CT 10/01/172151 Signed Impressions: Service Date/Time: Sunday, October 01, 2017 22:05 - CONCLUSION: No acute abnormality of the abdomen or pelvis. Hieu Tavarez MD Procedures 1. Irrigation and debridement right open tibia fracture with intramedullary konstantin fixation, 10/02/17, Dr Benjamin 2. Retrograde intramedullary konstantin fixation right femur, 10/02/17, Dr Benjamin Objective Remarks RLE: Dressing dry and intact. Brace in place. Tender to palpation with mild swelling around incision site. Range of motion not tested. Freely able to move distal digits. Mild weakness of ankle dorsiflexion. No calf pain. Negative Cristina's sign. Good cap refill. 2+ pedal pulses. Moderate swelling of the right foot but no discomfort to deep palpation. No tenderness of either shoulder or elbow or wrist. No tenderness of left hip knee or ankle Assessment & Plan Problem List: (1) Displaced comminuted fracture of shaft of right femur ICD Codes: S72.351A - Displaced comminuted fracture of shaft of right femur, initial encounter for closed fracture Status: Acute Qualifiers: (2) Type I or II open fracture of right tibia and fibula ICD Codes: S82.201B - Unspecified fracture of shaft of right tibia, initial encounter for open fracture type I or II; S82.401B - Unspecified fracture of shaft of right fibula, initial encounter for open fracture type I or II Status: Acute Qualifiers: Qualified Codes: S82.201B - Unspecified fracture of shaft of right tibia, initial encounter for open fracture type I or II; S82.401B - Unspecified fracture of shaft of right fibula, initial encounter for open fracture type I or II Assessment and Plan POD #3 1. Irrigation and debridement right open tibia fracture with intramedullary konstantin fixation 2. Retrograde intramedullary konstantin fixation right femur Progress rehab, toe touch w/b for transfers only RLE CKS for comfort while in bed. DVT prophylaxis per trauma team Daily dressing changes Stable orthopedically, Clear for d/c from an orthopedic standpoint. Spinal skeletal conditions treated by neurosurgery-surgical management of thoracic spine today F/u with Dr Benjamin in 2 weeks Cm to arrange C vs rehab, RN to d/c dora POD #8 10/10/17 Jayde Ziegler Oct 05, 2017 08:07
[2017-10-05] MEDS: HYDROmorphone HCL PCA 6 MG/30 ML IV SCH (09:14)
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
[2017-10-05] MEDS: LACTATED RINGER'S 1000 ML INJ 1,000 ML IV SCH (10:02)
[2017-10-05] MEDS ORDERED: ENOXAPARIN SODIUM 40 MG/0.4 ML SYRINGE SQ SCH (12:00)
[2017-10-05] MEDS: ENOXAPARIN SODIUM 40 MG/0.4 ML SYRINGE SQ SCH (18:29)
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
[2017-10-05] MEDS: BENZOCAINE-MENTHOL (SUGAR FREE) 15 MG-3.6 MG LOZENGE BUCCAL PRN (20:30)
[2017-10-05] MEDS: CHLORHEXIDINE GLUCONATE 2 % 1 PACK (2 CLOTHS) TOP SCH (23:23)
[2017-10-06] VITALS (7 sets, daily range): BP systolic 118–130; BP diastolic 57–69; PULSE 85–108; RESP 16–20; TEMP 98.5–101.5; O2SAT 93–100
[2017-10-06] MEDS: BENZOCAINE-MENTHOL (SUGAR FREE) 15 MG-3.6 MG LOZENGE BUCCAL PRN (00:07)
[2017-10-06] MEDS: ACETAMINOPHEN 325 MG TAB PO PRN (00:07)
[2017-10-06] MEDS: PCA - TOTAL MG DILAUDID DELIVERED PER SHIFT SCH (06:00)
[2017-10-06] MEDS: HYDROmorphone HCL PCA 6 MG/30 ML IV SCH (06:24)
[2017-10-06 06:41] LABS: BICARBONATE 19.2 MEQ/L (21.0-32.0); CALCIUM 7.4 MG/DL (8.5-10.1); CREATININE 1.16 MG/DL (0.60-1.30)
[2017-10-06 07:01] LABS: CALCIUM-PROTEIN CORRECTED 7.6 MG/DL (8.5-10.1); TOTAL PROTEIN 6.8 GM/DL (6.4-8.2)
[2017-10-06] MEDS ORDERED: PERI PO (07:37)
[2017-10-06] MEDS ORDERED: MAGN30S PO (07:37)
[2017-10-06] MEDS ORDERED: BEDSIDE COMMODE1 MI1 (07:40)
[2017-10-06] MEDS ORDERED: WHEEMIS3 (07:40)
--- NOTE | 2017-10-06 08:09 | PD.ORT.PN ---
Subjective Subjective Remarks POD #4 1. Irrigation and debridement right open tibia fracture with intramedullary konstantin fixation 2. Retrograde intramedullary konstantin fixation right femur Pt is awake and alert. Admits his pain is well controlled. He seems to be recovering well and is out of the ICU. Planning for rehab placement. Objective Vitals Vital Signs Date Time Temp Pulse Resp B/P (MAP) Pulse Ox O2 Delivery O2 Flow Rate FiO2 10/06/17 06:24 16 10/06/17 06:00 16 10/06/17 04:55 98.8 85 18 118/61 (80) 100 10/06/17 02:00 94 10/06/17 00:00 104 10/06/17 00:00 101.5 104 20 122/69 (86) 100 10/05/17 22:55 16 10/05/17 22:00 100 10/05/17 20:00 100.1 105 19 116/56 (76) 96 10/05/17 20:00 105 10/05/17 19:00 99 Room Air 10/05/17 18:00 98 10/05/17 16:00 99.7 92 17 122/57 (78) 96 10/05/17 16:00 92 10/05/17 14:00 102 10/05/17 14:00 13 10/05/17 12:00 99.1 95 14 130/63 (85) 100 10/05/17 12:00 95 10/05/17 10:00 102 10/05/17 09:14 13 I/O 10/05/17 10/05/17 10/05/17 10/06/17 10/06/17 10/06/17 07:00 15:00 23:00 07:00 15:00 23:00 Intake Total 240 ml 1300 ml 650 ml Output Total 1685 ml 1520 ml Balance -1445 ml 1300 ml -870 ml Intake Oral 240 ml 600 ml IV Total 1300 ml 50 ml Output Urine Total 1675 ml 1500 ml Drainage Total 10 ml 20 ml # Voids 0 # Bowel Movements 0 0 Result Diagram: 10/05/17 0505 10/06/17 0535 Imaging Last 24 hours Impressions Tibia/Fibula X-Ray 10/02/17 0000 Signed Impressions: Service Date/Time: Monday, October 02, 2017 08:41 - CONCLUSION: Status post ORIF of distal fibula and tibia fractures with intramedullary konstantin and screw through the distal tibia. Good anatomic alignment.. Deirdre Morales MD Femur X-Ray 10/02/17 0000 Signed Impressions: Service Date/Time: Monday, October 02, 2017 08:41 - CONCLUSION: Status post ORIF of a comminuted displaced femur fracture with good anatomic alignment of the osseous structures. Deirdre Morales MD Thoracic Spine CT 10/01/172151 Signed Impressions: Service Date/Time: Sunday, October 01, 2017 22:05 - CONCLUSION: Complex fracturing of T4 and T5 as above. Both vertebral posterior elements are involved and there is also a moderate compression fracture of T5. T4/T5 facets are perched on the right with a gibbus and road roto-kyphotic deformity but no associated subluxation. 11 mm right laminar fracture fragment of T4 is displaced into the spinal canal and causes moderate spinal stenosis. Findings were discussed with the trauma surgeon, Dr. Colon, by phone. Hieu Tavarez MD Pelvis X-Ray 10/01/172151 Signed Impressions: Service Date/Time: Sunday, October 01, 2017 21:49 - CONCLUSION: No evidence of pelvic fracture. Hieu Tavarez MD Maxillofacial CT 10/01/172151 Signed Impressions: Service Date/Time: Sunday, October 01, 2017 21:58 - CONCLUSION: Intact facial bones. Hieu Tavarez MD Lumbar Spine CT 10/01/172151 Signed Impressions: Service Date/Time: Sunday, October 01, 2017 22:05 - CONCLUSION: No fracture. Josue Mcmahon MD Head CT 10/01/172151 Signed Impressions: Service Date/Time: Sunday, October 01, 2017 21:58 - CONCLUSION: No bleed or other acute intracranial abnormality. Hieu Tavarez MD Chest X-Ray 10/01/172151 Signed Impressions: Service Date/Time: Sunday, October 01, 2017 21:49 - CONCLUSION: Trauma chest x-ray within normal limits. CT to follow. Hieu Tavarez MD Chest CT 10/01/172151 Signed Impressions: Service Date/Time: Sunday, October 01, 2017 22:05 - CONCLUSION: T4 and T5 thoracic spine fracture. Thoracic spine CT to follow and please refer to that report. The rest of the chest CT is within normal limits. Hieu Tavarez MD Cervical Spine CT 10/01/172151 Signed Impressions: Service Date/Time: Sunday, October 01, 2017 21:58 - CONCLUSION: Multifocal cervical spine fractures including the C1 ring and posterior elements of C6 and C7. Please see above. No subluxations. Mass of the left lobe of the thyroid gland and a nonemergent thyroid ultrasound is recommended. 1. Hieu Tavarez MD Abdomen/Pelvis CT 10/01/172151 Signed Impressions: Service Date/Time: Sunday, October 01, 2017 22:05 - CONCLUSION: No acute abnormality of the abdomen or pelvis. Hieu Tavarez MD Procedures 1. Irrigation and debridement right open tibia fracture with intramedullary konstantin fixation, 10/02/17, Dr Benjamin 2. Retrograde intramedullary konstantin fixation right femur, 10/02/17, Dr Benjamin Objective Remarks RLE: Dressings dry and intact. Brace in place. Tender to palpation with mild swelling around incision site. Range of motion not tested. Freely able to move distal digits. Moderate weakness of ankle dorsiflexion. No calf pain. Negative Cristina's sign. Good cap refill. 2+ pedal pulses. Moderate swelling of the right foot but no discomfort to deep palpation. No tenderness of either shoulder or elbow or wrist. No tenderness of left hip knee or ankle Assessment & Plan Problem List: (1) Displaced comminuted fracture of shaft of right femur ICD Codes: S72.351A - Displaced comminuted fracture of shaft of right femur, initial encounter for closed fracture Status: Acute Qualifiers: (2) Type I or II open fracture of right tibia and fibula ICD Codes: S82.201B - Unspecified fracture of shaft of right tibia, initial encounter for open fracture type I or II; S82.401B - Unspecified fracture of shaft of right fibula, initial encounter for open fracture type I or II Status: Acute Qualifiers: Qualified Codes: S82.201B - Unspecified fracture of shaft of right tibia, initial encounter for open fracture type I or II; S82.401B - Unspecified fracture of shaft of right fibula, initial encounter for open fracture type I or II Assessment and Plan POD #4 1. Irrigation and debridement right open tibia fracture with intramedullary konstantin fixation 2. Retrograde intramedullary konstantin fixation right femur Progress rehab, toe touch w/b for transfers only RLE CKS for comfort while in bed. Ok to remove for gentle ROM of knee. DVT prophylaxis per trauma team Daily dressing changes Stable orthopedically, Clear for d/c from an orthopedic standpoint. Spinal skeletal conditions treated by neurosurgery Will continue to monitor weakened RLE dorsiflexion F/u with Dr Benjamin in 2 weeks Cm to arrange Rehab, aids social worker to d/c dora POD #8 10/10/17 Jayde Ziegler Oct 06, 2017 08:09
[2017-10-06] MEDS: PANTOPRAZOLE SODIUM 40 MG VIAL IVP SCH (08:51)
[2017-10-06] MEDS: METHOCARBAMOL 500 MG TAB PO SCH ×2 (08:51→16:15)
[2017-10-06] MEDS: LACTULOSE SYRUP 20 GM/30 ML CUP PO SCH (08:51)
[2017-10-06] MEDS: NS + KCL 20 MEQ INJ 1,000 ML IV SCH (08:52)
[2017-10-06] MEDS: DOCUSATE SODIUM 50 MG/SENNA 8.6 MG TAB PO SCH ×2 (08:52→21:50)
[2017-10-06] MEDS: SODIUM CHLORIDE 0.9% FLUSH 10 ML FLUSH IV FLUSH SCH ×2 (08:52→21:51)
[2017-10-06] MEDS: GABAPENTIN 300 MG CAP PO SCH ×3 (08:52→16:15)
[2017-10-06] MEDS: BACITRACIN TOP OINT 15 GM TUBE TOPICAL SCH ×2 (08:53→21:51)
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
[2017-10-06] MEDS: oxyCODONE/ACETAMINOPHEN 5 MG/325 MG TAB PO PRN ×2 (13:46→21:49)
[2017-10-06 15:05] LABS: AUTOMATED NEUTROPHIL # 5.6 TH/MM3 (1.8-7.7); BASOPHIL % 0.4 % (0.0-2.0); EOSINOPHIL # 0.2 TH/MM3 (0-0.4); EOSINOPHIL % 2.9 % (0.0-4.0); HEMATOCRIT 28.2 % (39.0-51.0); LYMPH % 12.6 % (9.0-44.0); MEAN CELL VOLUME 86.3 FL (80.0-100.0); MEAN CORPUSCULAR HEMOGLOBIN 30.8 PG (27.0-34.0); MEAN CORPUSCULAR HGB CONC 35.7 % (32.0-36.0); MEAN PLATELET VOLUME 7.3 FL (7.0-11.0); MONO % 14.2 % (0.0-8.0); MONOCYTE # 1.1 TH/MM3 (0-0.9); NEUT % 69.9 % (16.0-70.0); PLATELET COUNT 221 TH/MM3 (150-450); RED BLOOD COUNT 3.26 MIL/MM3 (4.50-5.90); RED CELL DISTRIBUTION WIDTH 13.3 % (11.6-17.2); WHITE BLOOD COUNT 8.1 TH/MM3 (4.0-11.0)
[2017-10-06] MEDS: ENOXAPARIN SODIUM 40 MG/0.4 ML SYRINGE SQ SCH (16:15)
[2017-10-07] VITALS: BP 128/58; PULSE 102; RESP 20; TEMP 101.2; O2SAT 94
[2017-10-07] MEDS: METHOCARBAMOL 500 MG TAB PO SCH ×2 (00:36→09:08)
[2017-10-07] MEDS: ACETAMINOPHEN 325 MG TAB PO PRN (01:00)
[2017-10-07 04:00] VITALS: TEMP 98.9
[2017-10-07] MEDS ORDERED: FAMO1TAB37 PO (07:44)
[2017-10-07] MEDS ORDERED: NEUR300C PO (07:44)
[2017-10-07] MEDS ORDERED: Lactulose Liq PO (07:44)
[2017-10-07] MEDS ORDERED: OXYC1TAB63 PO (07:44)
[2017-10-07] MEDS ORDERED: ENOX40P SQ (07:44)
[2017-10-07] MEDS ORDERED: METH500T3 PO (07:44)
[2017-10-07] MEDS ORDERED: BISACODYL 10 MG SUPP RECTAL ONE (07:45)
[2017-10-07] MEDS ORDERED: BISACODYL EC 5 MG TABEC PO ONE (07:45)
[2017-10-07 08:00] VITALS: BP 132/72; PULSE 100; RESP 18; TEMP 99.5; O2SAT 94
[2017-10-07] MEDS ORDERED: MAGNESIUM HYDROXIDE SUSP 30 ML CUP PO SCH (09:00)
[2017-10-07] MEDS: DOCUSATE SODIUM 50 MG/SENNA 8.6 MG TAB PO SCH (09:07)
[2017-10-07] MEDS: GABAPENTIN 300 MG CAP PO SCH ×2 (09:07→12:58)
[2017-10-07] MEDS: PANTOPRAZOLE SODIUM 40 MG VIAL IVP SCH (09:08)
[2017-10-07] MEDS: LACTULOSE SYRUP 20 GM/30 ML CUP PO SCH (09:08)
[2017-10-07] MEDS: oxyCODONE/ACETAMINOPHEN 5 MG/325 MG TAB PO PRN (10:16)
[2017-10-07] MEDS: BENZOCAINE-MENTHOL (SUGAR FREE) 15 MG-3.6 MG LOZENGE BUCCAL PRN (11:09)
[2017-10-07] MEDS: BACITRACIN TOP OINT 15 GM TUBE TOPICAL SCH (11:10)
[2017-10-07] MEDS: SODIUM CHLORIDE 0.9% FLUSH 10 ML FLUSH IV FLUSH SCH (11:10)
[2017-10-07 12:00] VITALS: BP 125/61; PULSE 100; RESP 16; TEMP 99; O2SAT 96
--- NOTE | 2017-10-07 13:35 | RADRPT ---
EXAM DATE/TIME: 10/07/2017 12:40 [facility] COMPARISON: CHEST SINGLE AP, October 01, 2017, 21:49. [facility] ( [facility]), October 04, 2017, 11:19. INDICATIONS : Trauma. MEDICAL HISTORY : None. SURGICAL HISTORY : Fusion, thoracic. Right tibia ORIF. ENCOUNTER: Subsequent ACUITY: 4 - 6 days PAIN SCORE: 3/10 LOCATION: Bilateral back, thorax FINDINGS: Interval upper thoracic spinal hardware fusion. Lungs are symmetrically aerated and grossly clear. Ca rdiac contours are satisfactory for technique and projection. CONCLUSION: No acute disease. Hieu Bryant MD on October 07, 2017 at 13:32 Board Certified Radiologist. This report was verified electronically.
[2017-10-07 16:00] VITALS: BP 126/58; PULSE 103; RESP 17; TEMP 99.5; O2SAT 97
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
== END 2017-10-07 17:31 | DRG 956 ==
LOC: NEPI 21:47 → EDBD 22:27 → NEDA 22:27 → N03A 22:35 → N07B 10-06 03:45
PROVIDERS: ADMIT Surgery Trauma Surgery; ATTEND Surgery Trauma Surgery
PROC: 0QSGXZZ Reposition Right Tibia, External Approach (ICD-10-PCS; 2017-10-01)
PROC: 0QSG06Z Reposition Right Tibia with Intramedullary Internal Fixation Device, Open Approach (ICD-10-PCS; 2017-10-02)
PROC: 0QS806Z Reposition Right Femoral Shaft with Intramedullary Internal Fixation Device, Open Approach (ICD-10-PCS; principal; 2017-10-02 07:20)
PROC: 0RG7071 Fusion of 2 to 7 Thoracic Vertebral Joints with Autologous Tissue Substitute, Posterior Approach, Posterior Column, Open Approach (ICD-10-PCS; 2017-10-04)
PROC: 0PS404Z Reposition Thoracic Vertebra with Internal Fixation Device, Open Approach (ICD-10-PCS; 2017-10-04)
PROC: 0PB40ZZ Excision of Thoracic Vertebra, Open Approach (ICD-10-PCS; 2017-10-04)
PROC: 0QB30ZZ Excision of Left Pelvic Bone, Open Approach (ICD-10-PCS; 2017-10-04)
PROC: 30233N1 Transfusion of Nonautologous Red Blood Cells into Peripheral Vein, Percutaneous Approach (ICD-10-PCS; 2017-10-04)
PROC: 4A11X4G Monitoring of Peripheral Nervous Electrical Activity, Intraoperative, External Approach (ICD-10-PCS; 2017-10-04)
DX: S72.351A Displaced comminuted fracture of shaft of right femur, initial encounter for closed fracture (principal); S24.102A Unspecified injury at T2-T6 level of thoracic spinal cord, initial encounter; S22.048A Other fracture of fourth thoracic vertebra, initial encounter for closed fracture; S12.500A Unspecified displaced fracture of sixth cervical vertebra, initial encounter for closed fracture; S12.030A Displaced posterior arch fracture of first cervical vertebra, initial encounter for closed fracture; S82.831B Other fracture of upper and lower end of right fibula, initial encounter for open fracture type I or II; S82.301B Unspecified fracture of lower end of right tibia, initial encounter for open fracture type I or II; S12.600A Unspecified displaced fracture of seventh cervical vertebra, initial encounter for closed fracture; S22.050A Wedge compression fracture of T5-T6 vertebra, initial encounter for closed fracture; S06.0X0A Concussion without loss of consciousness, initial encounter; V03.10XA Pedestrian on foot injured in collision with car, pick-up truck or van in traffic accident, initial encounter; R40.2412 Glasgow coma scale score 13-15, at arrival to emergency department; E07.9 Disorder of thyroid, unspecified
CPT/HCPCS: 27750; 36430; 70450; 70486; 70498; 71045; 71260; 72070; 72125; 72129; 72132; 72141; 72146; 72148; 72170; 73551; 73552; 73590; 74177; 75635; 76000; 80048; 82805; 84100; 84155; 85014; 85018; 85025; 85027; 85610; 85730; 86850; 86900; 86901; 86920; 87641; 90471; 94150; 96374; 96375; 99291; C1713; C9113; G0390; J0131; J0330; J0690; J0696; J1030; J1100; J1170; J1580; J1644; J1650; J2175; J2250; J2270; J2370; J2405; J3010; J3370; J3480; J7030; J7040; J7050; J7120; L0150; L0172; L0484; L0810; L1830; P9016; Q9967